=== PATIENT | female | born 1950 | race Caucasian/White ===

== ENCOUNTER → 2016-12-05 | Outpatient (CLI) | payer MEDICARE, BC ==
[~2016-12-05] MED LIST: ALLEGRA60 MG PO; CALCIUM 500 +1 EACH PO; ESTRACE42.5 GM VG; FISH OIL 1,0001 EAC7 PO; LAMICTAL100 MG PO; LITHIUM CARBON300 M2 PO; LOSARTAN-HCTZ1 EAC1 PO; MAGNESIUM OXID500 MG PO; RED YEAST RICE600 M1 PO; ZOLOFT50 MG PO
== END | disposition home or self-care (01) ==
LOC: CDC 10:11
DX: R94.31 Abnormal electrocardiogram [ECG] [EKG] (principal); N81.11 Cystocele, midline; N81.6 Rectocele; N81.4 Uterovaginal prolapse, unspecified
CPT/HCPCS: 93000

== ENCOUNTER 2016-12-12 05:40 | Inpatient (IN) | payer OTHER, BC ==
[~2016-12-12] VITALS: Ht 160 cm; Wt 69.4 kg
[2016-12-12 06:38] VITALS: BP 132/61
[2016-12-12 12:13] VITALS: BP 116/62
[2016-12-12 18:25] VITALS: BP 129/61
[2016-12-12 19:35] VITALS: BP 143/67
[2016-12-12 23:41] VITALS: BP 164/80
[2016-12-13 03:54] VITALS: BP 169/82
[2016-12-13 06:44] LABS: EOSINOPHIL (%) 0.1 % (0-5); HEMATOCRIT 31.6 % (36.0-46.0); IMMATURE GRANULOCYTE (%) 0.1 % (0.0-0.7); LYMPHOCYTE COUNT 0.7 K/uL (1.0-2.8); MCH 30.3 PG (29.0-34.0); MCHC 34.2 G/DL (30.0-36.0); MCV 88.5 FL (83-99); MEAN PLAT.VOLUME 8.8 uM^3 (9.5-12.4); MONOCYTE (%) 7.4 % (3-12); MONOCYTE COUNT 0.8 K/uL (0-0.8); NEUTROPHIL (%) 85.4 % (45-76); NEUTROPHIL COUNT 8.8 K/uL (1.8-6.4); RBC DIS.WIDTH-CV 12.3 % (11.8-14.6); RBC DIS.WIDTH-SD 39.8 % (39-53); RED BLOOD COUNT 3.57 M/uL (3.80-5.20)
[2016-12-13 06:52] LABS: PLATELET COUNT 274 K/uL (156-360); WHITE BLOOD COUNT 10.3 K/uL (4.1-10.2)
[2016-12-13 07:08] LABS: ANION GAP 7 MEQ/L (2-14); CHLORIDE 99 MEQ/L (99-109); GFR ESTIMATE (CALCULATED) > 59 mL/min/; GLUCOSE 104 mg/dL (70-99); POTASSIUM 3.5 MEQ/L (3.7-5.4); SAMPLE HEMOLYSIS CHECK 0; SAMPLE ICTERIC CHECK 0; SAMPLE LIPEMIA CHECK 0; SODIUM 133 MEQ/L (136-147); UREA NITROGEN (BUN) 11 mg/dL (9-23)
[2016-12-13 08:16] VITALS: BP 158/80
[2016-12-13 12:12] VITALS: BP 114/56
[2016-12-13 15:50] VITALS: BP 142/65
[2016-12-13 19:20] VITALS: BP 163/77
[2016-12-13 23:20] VITALS: BP 158/78
[2016-12-14 03:27] VITALS: BP 160/88
[2016-12-14 06:46] LABS: EOSINOPHIL (%) 0.2 % (0-5); HEMATOCRIT 30.4 % (36.0-46.0); IMMATURE GRANULOCYTE (%) 0.2 % (0.0-0.7); MCHC 33.2 G/DL (30.0-36.0); MCV 90.2 FL (83-99); MEAN PLAT.VOLUME 8.8 uM^3 (9.5-12.4); MONOCYTE (%) 9.5 % (3-12); MONOCYTE COUNT 0.8 K/uL (0-0.8); NEUTROPHIL (%) 77.5 % (45-76); NEUTROPHIL COUNT 6.2 K/uL (1.8-6.4); PLATELET COUNT 245 K/uL (156-360); RBC DIS.WIDTH-CV 12.4 % (11.8-14.6); RBC DIS.WIDTH-SD 40.4 % (39-53); RED BLOOD COUNT 3.37 M/uL (3.80-5.20)
[2016-12-14 08:51] VITALS: BP 168/91
[2016-12-14 08:57] LABS: ANION GAP 3 MEQ/L (2-14); CHLORIDE 102 MEQ/L (99-109); GFR ESTIMATE (CALCULATED) > 59 mL/min/; GLUCOSE 91 mg/dL (70-99); POTASSIUM 3.2 MEQ/L (3.7-5.4); SAMPLE HEMOLYSIS CHECK 0; SAMPLE ICTERIC CHECK 0; SAMPLE LIPEMIA CHECK 0; SODIUM 139 MEQ/L (136-147); UREA NITROGEN (BUN) 8 mg/dL (9-23)
[2016-12-14 11:22] VITALS: BP 165/88
[2016-12-14 15:39] VITALS: BP 165/92
== END 2016-12-14 16:20 | disposition home or self-care (01) | DRG 743 ==
LOC: 2SOUTH 05:40 → 2EAST 05:40 → 2EASTP 05:40 → 2SOUTH 10:59 → 2EASTP 12:32 → 2SOUTH 12:36 → 2EAST 12-13 18:14
PROVIDERS: Obstetrics & Gynecology Gynecology
DX: N81.4 Uterovaginal prolapse, unspecified (principal); I10 Essential (primary) hypertension; N95.2 Postmenopausal atrophic vaginitis; Z87.891 Personal history of nicotine dependence
CPT/HCPCS: 80048; 82948; 85025; 87086; 88307; C1781; J0131; J0330; J0690; J1100; J1170; J1650; J1885; J2250; J2405; J2710; J3010; J7120